=== PATIENT | female | born 1955 | race Caucasian/White ===

== ENCOUNTER → 2019-06-11 | Outpatient (CLI) | payer OTHER ==
[~2019-06-11] MED LIST: ALDACTONE25 MG PO; AMARYL4 MG PO; BENICAR20 MG PO; COUMADIN 5 MG TA5 M1 PO; DILTIAZEM ER120 M1 PO; GLUCOPHAGE500 MG PO; K-DUR10 MEQ PO; LOVASTAT40 PO; SYNTHROID100 MCG PO
--- NOTE | 2019-06-11 12:24 | 2DMMODE ---
[facility] [address] [place] [address] 2 D/M-MODE ECHOCARDIOGRAM Name: FIORELLA ARITA Room #: REG CL [facility]#: [id number] ������������� Admission: 06/11/19 ������������� Attend Phys: Thanh Gonsalez MD Discharge: ��� ������������� ��� Date of : 51 Date of Service: 06/11/19 1223 �� Report #: [id number] �������� ��������������������������������������������[id number] THIS REPORT FOR: //name// APPROVED REPORT Study performed: 06/11/2019 11:03:52 EXAM: Comprehensive 2D, Doppler, and color-flow Echocardiogram Patient Location: Out-Patient, Echo Lab Status: routine BSA: 2.26 HR: 72 bpm BP: 130/72 mmHg Rhythm: Atrial Fibrillation Other Information Study Quality: Adequate Technically limited study due to body habitus. Indications Atrial Fibrillation Chest Pain 2D Dimensions RVDd: 33.52 mm IVSd: 8.69 (7-11mm) LVOT Diam: 20.00 (18-24mm) LVDd: 48.73 mm PWd: 9.94 (7-11mm) Ascending Ao: 32.90 (22-36mm) LVDs: 34.09 (25-40mm) Aortic Root: 26.69 mm Volumes Left Atrial Volume (Systole) Single Plane 4CH: 85.98 mL Single Plane 2CH: 124.93 mL LA ESV Index: 49.00 mL/m2 Aortic Valve AoV Peak Roberto.: 2.86 m/s AO Peak Gr.: 21.79 mmHg LVOT Max P.99 mmHg AO Mean Gr.: 11.39 mmHg LVOT Mean P.41 mmHg AO V2 Mean: 1.78 m/s LVOT Max V: 0.86 m/s AO V2 VTI: 47.97 cm LVOT Mean V: 0.55 m/s NIKKO (VTI): 1.20 cm2 LVOT V1 VTI: 18.14 cm NIKKO Vmax: 0.96 cm2 [facility] [place] [address] 2 D/M-MODE ECHOCARDIOGRAM Name: FIORELLA ARITA Room #: REG [facility]#: [id number] ������������� Admission: 06/11/19 ������������� Attend Phys: Thanh Gonsalez MD Discharge: ��� ������������� ��� Date of : 51 Date of Service: 06/11/19 1223 �� Report #: [id number] �������� ��������������������������������������������[id number] SV (LVOT): 57.78 mL Mitral Valve MV Decel. Time: 214.05 ms MV E Max Roberto.: 1.12 m/s IVRT: 83.04 ms Pulmonary Valve PV Peak Roberto.: 1.26 m/s PV Peak Gr.: 6.37 mmHg Tricuspid Valve TR Peak Roberto.: 2.81 m/s RAP Estimate: 7.00 mmHg TR Peak Gr.: 31.60 mmHg PA Pressure: 39.00 mmHg Left Ventricle The left ventricle is normal size. There is normal LV segmental wall motion. There is normal left ventricular wall thickness. Left ventricular systolic function is normal. The left ventricular ejection fraction is within the normal range. LVEF is 60%. This study is not technically sufficient to allow evaluation of the LV diastolic function due to atrial fibrillation. Right Ventricle The right ventricle is normal size. The right ventricular systolic function is normal. Atria Left atrium is moderately dilated. Right atrium is dilated. Aortic Valve Aortic valve is not well visualized and mildly calcified. No aortic regurgitation is present. Probable mild aortic valve stenosis. Mitral Valve The mitral valve is normal in structure. Mild to moderate mitral regurgitation. No evidence of mitral valve stenosis. Tricuspid Valve The tricuspid valve is normal in structure. Mild to moderate tricuspid regurgitation. Pulmonary artery pressure is 39 mmHg. Pulmonic Valve The pulmonary valve is normal in structure. Trace pulmonic [facility] [address] [place] [address] 2 D/M-MODE ECHOCARDIOGRAM Name: FIORELLA ARITA Room #: REG CL [facility]#: [id number] ������������� Admission: 06/11/19 ������������� Attend Phys: Thanh Gonsalez MD Discharge: ��� ������������� ��� Date of : 51 Date of Service: 06/11/19 1223 �� Report #: [id number] �������� ��������������������������������������������[id number] regurgitation. Great Vessels The aortic root is normal in size. The ascending aorta is normal in size. IVC is normal in size and collapses >50% with inspiration. Pericardium There is no pericardial effusion. <Conclusion> The left ventricle is normal size. There is normal left ventricular wall thickness. Left ventricular systolic function is normal. The right ventricle is normal size. Left atrium is moderately dilated. Aortic valve is not well visualized and mildly calcified. Probable mild aortic valve stenosis. Mild to moderate mitral regurgitation. Mild to moderate tricuspid regurgitation. Pulmonary artery pressure is 39 mmHg. ��������������������������������������������� <ELECTRONICALLY SIGNED> ���������������������������������������� By: Thanh Gonsalez MD ��������������������������������������������� 06/11/19 1223 1223 1223 Thanh Gonsalez MD /INF
== END ==
LOC: CV 10:06
DX: I08.3 Combined rheumatic disorders of mitral, aortic and tricuspid valves (principal); I48.91 Unspecified atrial fibrillation